=== PATIENT | female | born 1970 | race Caucasian/White ===

== ENCOUNTER 2017-08-26 15:56 | Outpatient (CLI) | payer BC, OTHER ==
--- NOTE | 2017-08-27 13:51 | Mammography Report ---
DIGITAL SCREENING MAMMOGRAM: 08/26/2017 INDICATION: A 47-year-old for screening. COMPARISON: This is the patient's baseline examination. TECHNIQUE: Routine CC and MLO projections were obtained of the breasts. FINDINGS: The breasts demonstrate scattered fibroglandular densities bilaterally. No suspicious masses, clustered microcalcifications, or regions of architectural distortion are identified. IMPRESSION: NEGATIVE EXAMINATION. RECOMMENDATION: Routine annual screening unless otherwise clinically indicated. BIRADS CATEGORY 1-NEGATIVE. STANDARD QUALIFYING STATEMENTS: 1. This examination was reviewed with the aid of Computer-Aided Detection (CAD). 2. A negative or benign imaging report should not delay biopsy if clinically suspicious findings are present. Consider surgical consultation if warranted. More than 5% of cancers are not identified by imaging. 3. Dense breasts may obscure an underlying neoplasm. TD: 08/27/2017 13:50
== END 2017-08-26 15:57 | disposition home or self-care (01) ==
LOC: DI 15:56
PROVIDERS: ATTEND Obstetrics & Gynecology
DX: Z12.31 Encounter for screening mammogram for malignant neoplasm of breast (principal)
CPT/HCPCS: 77067

== ENCOUNTER 2019-09-07 11:19 | Outpatient (CLI) | payer BC ==
--- NOTE | 2019-09-07 20:03 | XRAY Report ---
Reason: PAIN IN RIGHT KNEE Procedure Date: 09/07/2019 Accession Number: [id number] / [id number] Procedure: XR - Knee 3 View RT CPT Code: Final Report FULL RESULT: EXAM: RIGHT KNEE RADIOGRAPHY EXAM DATE: 09/07/2019 11:43 AM. CLINICAL HISTORY: PAIN IN RIGHT KNEE. Was 17 injury 3 weeks ago. Medial joint pain. COMPARISON: None. TECHNIQUE: 3 views. FINDINGS: Bones: Normal. No fractures or bone lesions. Joints: Normal. No effusion. No subluxations. Soft Tissues: Normal. No soft tissue swelling. IMPRESSION: Normal right knee radiography. [facility]
== END 2019-09-07 11:20 | disposition home or self-care (01) ==
LOC: DI 11:19
PROVIDERS: ATTEND Family Medicine
DX: M25.561 Pain in right knee (principal)

== ENCOUNTER 2019-10-04 14:54 | Outpatient (CLI) | payer BC ==
--- NOTE | 2019-10-04 16:04 | MRI Report ---
Reason: PAIN IN RIGHT KNEE Procedure Date: 10/04/2019 Accession Number: [id number] / [id number] Procedure: MRI - Knee RT W/O CPT Code: Final Report FULL RESULT: PROCEDURE: Knee RT W/O INDICATIONS: PAIN IN RIGHT KNEE TECHNIQUE: Noncontrast sagittal PD fast spin echo and T2 fast spin echo with fat saturation, sagittal 3-D gradient sequence with fat saturation; coronal T1 spin echo and PD fast spin echo with fat saturation, and axial PD fast spin echo with fat saturation through the knee. COMPARISON: Plain films of the knee dated 09.07.19 FINDINGS: Image quality: Excellent. Menisci: Mild amorphous high signal intensity within the medial meniscal body is present, without articular surface extension, compatible with myxoid degeneration. The medial and lateral menisci demonstrate otherwise normal morphology and internal signal. The meniscal root ligaments appear intact. Cruciate ligaments: The anterior and posterior cruciate ligaments appear intact. Medial structures: The medial collateral ligament appears intact. Visualized portions of the pes anserinus tendons appear normal. No abnormal bursal fluid. Lateral structures: The lateral collateral ligament, long and short heads of the biceps femoris tendon appear intact. The popliteus tendon appears. Iliotibial band appears normal. Anterior structures: The quadriceps and patellar tendons appear intact. Patellar alignment is normal. No femoral trochlear dysplasia or ventral trochlear prominence. No edema in the infrapatellar fat pad. Bones and cartilage: No bone marrow contusions or fractures. Mild diffuse articular cartilage loss overlies the weightbearing aspects of the medial femoral condyle and medial tibial plateau. Joint space: There is physiologic knee joint fluid. Trace Palma?s cyst. Normal appearing synovial plicae are incidentally noted. IMPRESSION: 1. 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 2. No internal derangement. 3. Mild medial compartment articular cartilage loss. Reviewed by: Virginia Baum MD on 10/04/2019 4:03 PM PDT Approved by: Virginia Baum MD on 10/04/2019 4:03 PM PDT Station ID: [id number]
== END 2019-10-04 14:55 | disposition home or self-care (01) ==
LOC: DI 14:54
PROVIDERS: ATTEND Family Medicine
DX: M23.8X1 Other internal derangements of right knee (principal)

== ENCOUNTER 2022-09-03 08:24 | Outpatient (CLI) | payer BC ==
[2022-09-03 11:49] LABS: BASOPHILS % (AUTO) 0.8 %; EOSINOPHILS # (AUTO) 0.1 10^3/uL (0.0-0.7); EOSINOPHILS % (AUTO) 2.6 %; HCT - HEMATOCRIT 41.8 % (37.0-47.0); HGB - HEMOGLOBIN 13.4 g/dL (12.0-16.0); LYMPHOCYTES # (AUTO) 1.2 10^3/uL (1.5-3.5); MEAN CORPUSCULAR HEMOGLOBIN 30.9 pg (27.0-31.0); MEAN CORPUSCULAR HGB CONC 32.1 g/dL (32.0-36.0); MEAN CORPUSCULAR VOLUME 96.5 fL (81.0-99.0); MEAN PLATELET VOLUME 10.5 fL (7.9-10.8); MONOCYTES # (AUTO) 0.4 10^3/uL (0.0-1.0); MONOCYTES % (AUTO) 10.3 %; NEUTROPHILS # (AUTO) 2.1 10^3/uL (1.5-6.6); NEUTROPHILS % (AUTO) 54.3 %; PLT - PLATELET COUNT 256 10^3/uL (130-450); RED BLOOD COUNT 4.33 10^6/uL (4.20-5.40); RED CELL DISTRIBUTION WIDTH 13.2 % (12.0-15.0); WHITE BLOOD COUNT 3.8 x10^3/uL (4.8-10.8)
[2022-09-03 12:25] LABS: ESTIMATED AVERAGE GLUCOSE 103 mg/dL (70-100); HEMOGLOBIN A1c% 5.2 % (4.27-6.07)
[2022-09-03 14:17] LABS: ALBUMIN 4.6 g/dL (3.2-5.5); ALBUMIN/GLOBULIN RATIO 1.4 (1.0-2.2); ALKALINE PHOSPHATASE 52 IU/L (42-121); ALT ALANINE AMINOTRANSFERASE 13 IU/L (10-60); AST ASPARTATE AMINOTRANSFERASE 15 IU/L (10-42); BILIRUBIN,TOTAL 0.7 mg/dL (0.2-1.0); BUN - BLOOD UREA NITROGEN 15 mg/dL (6-20); CALCIUM 9.4 mg/dL (8.5-10.3); CARBON DIOXIDE - CO2 25 mmol/L (21-32); CHLORIDE 107 mmol/L (101-111); CHOL/HDL RATIO 3.8 (<4.4); CHOLESTEROL 219 mg/dL; CREATININE 0.7 mg/dL (0.4-1.0); GFR - MDRD 88 (>89); GLUCOSE 92 mg/dL (70-100); HDL CHOLESTEROL 58 mg/dL; LDL CHOLESTEROL,CALCULATED 148 mg/dL; LDL/HDL RATIO 2.6 (<4.4); POTASSIUM 4.2 mmol/L (3.5-5.0); SODIUM 136 mmol/L (135-145); TOTAL PROTEIN 7.8 g/dL (6.7-8.2); TRIGLYCERIDES 63 mg/dL; VLDL CHOLESTEROL 13 mg/dL
== END 2022-09-03 08:25 | disposition home or self-care (01) ==
LOC: LAB.N 08:24
PROVIDERS: ATTEND Nurse Practitioner Family
DX: I10 Essential (primary) hypertension (principal); E66.9 Obesity, unspecified; Z13.220 Encounter for screening for lipoid disorders; Z13.1 Encounter for screening for diabetes mellitus
CPT/HCPCS: 36415; 80053; 80061; 83036; 83721; 84443; 85025

== ENCOUNTER 2023-06-14 06:02 | Emergency (ER) | payer BC ==
[2023-06-14] MEDS: SODIUM CHLORIDE 0.9% 1,000 ML IV STA ×2 (06:56→07:42)
[2023-06-14] MEDS: ONDANSETRON 4 MG/2 ML VIAL IVP STA (06:56)
--- NOTE | 2023-06-14 07:06 | ED Physician Documentation ---
PD HPI NVD - Stated complaint Stated Complaint: NAUSEA - Chief complaint Chief Complaint: Abd Pain - History obtained from History obtained from: Patient - History of Present Illness Timing - onset: How many days ago (3) Timing - duration: Days (3 with frequent vomiting every 2-3 hours.) Timing - details: Abrupt onset, Still present Contributing factors: Other (she had skipped a month of [place] and had given monthly injection day beofre onset of symptoms. So unclear if connected or coincidence.). No: Sick contact, Bad food Similar symptoms before: Has not had sx before (she has been on [place] monthly for half a year without side effects like this. But skipped a month so not sure if that had an effect.) Recently seen: Not recently seen Review of Systems Constitutional: denies: Fever, Chills Nose: denies: Rhinorrhea / runny nose, Congestion Throat: denies: Sore throat Respiratory: denies: Cough GI: reports: Abdominal Pain (intermittent cramping), Nausea, Vomiting, Diarrhea. denies: Constipation, Hematemesis, Bloody / black stool Neurologic: reports: Generalized weakness. denies: Syncope PD PAST MEDICAL HISTORY - Past Medical History Cardiovascular: Hypertension Psych: Anxiety - Present Medications Home Medications: Ambulatory Orders Medication Instructions Recorded Confirmed Famotidine [Pepcid] 20 mg PO DAILY #20 tablet 06/14/23 Ondansetron Odt [Zofran] 4 mg TL Q6H PRN #10 tablet 06/14/23 Semaglutide [Wegovy] 0.25 mg SQ ONCE 06/14/23 06/14/23 buPROPion HCL [Wellbutrin Xl] 300 mg PO DAILY 06/14/23 06/14/23 lisinopriL [Lisinopril] 40 mg PO DAILY 06/14/23 06/14/23 - Allergies Allergies/Adverse Reactions: Allergies Allergy/AdvReac Type Severity Reaction Status Date / Time Penicillins Allergy Unknown Verified 06/14/23 06:15 - Social History Does the pt smoke?: No Smoking Status: Never smoker PD ED PE NORMAL - Vitals Vital signs reviewed: Yes - General General: Alert and oriented X 3, Well developed/nourished, Other (holding emesis bag) - HEENT HEENT: Pharynx benign. No: Moist mucous membranes - Neck Neck: Supple, no meningeal sign, No adenopathy - Cardiac Cardiac: RRR, No murmur - Respiratory Respiratory: Clear bilaterally - Derm Derm: Normal color, Warm and dry - Extremities Extremities: No calf tenderness / cord - Neuro Neuro: Alert and oriented X 3, No motor deficit, Normal speech Results - Vitals Vitals: Oxygen O2 Source Room air - Labs Labs: Laboratory Tests 06/14/23 06/14/23 06/14/23 06:50 06:50 06:50 WBC 9.4 RBC 4.76 Hgb 15.2 Hct 46.7 MCV 98.1 MCH 31.9 H MCHC 32.5 RDW 12.9 Plt Count 286 MPV 10.1 Neut # (Auto) 8.2 H Lymph # (Auto) 0.6 L [place] # (Auto) 0.5 Eos # (Auto) 0.0 Baso # (Auto) 0.0 Absolute Nucleated RBC 0.00 Nucleated RBC % 0.0 Sodium 136 Potassium 4.1 Chloride 102 Carbon Dioxide 18 L Anion Gap 16.0 H BUN 25 H Creatinine 0.9 Estimated GFR (MDRD) 65 L Glucose 76 Calcium 10.1 Magnesium 1.9 Total Bilirubin 0.8 AST 13 ALT 9 L Alkaline Phosphatase 57 Total Protein 8.1 Albumin 5.0 Globulin 3.1 Albumin/Globulin Ratio 1.6 Lipase < 10 L PD Medical Decision Making - ED course Complexity details: reviewed results, re-evaluated patient (feeling improved with IV fluids and meds IV of Zofran, Toradol and Famotidine. ), considered differential (abrupt N/V/D soon after injection of [place] medication but has had it monthly for awhile without side effects. Had been at higher dose before and was at maintanence dose and skipped one month. No obvious food source for GE . Not having general viral symptoms. Exam not c/w obstruction/etc.), d/w patient Departure - Departure Disposition: 01 Home, Self Care Clinical Impression: Volume depletion, Nausea and vomiting, Acute gastroenteritis Condition: Stable Record reviewed to determine appropriate education?: Yes Instructions: ED Nausea Vomiting Prescriptions: Famotidine [Pepcid] 20 mg PO DAILY #20 tablet Ondansetron Odt [Zofran] 4 mg TL Q6H PRN #10 tablet PRN Reason: Nausea / Vomiting Comments: This combination of symptoms may be related to a viral "stomach flu". There have been focal with similar illnesses lasting 3 to 5 days being seen recently here in the ER. There may be a compounded effect of the side effects from the [place]gov[place] as well. At this point hopefully the ondansetron/Zofran will allow for decreased nausea. Be gentle with your stomach of course with frequent fluids and ice chips and commonly carbohydrates or starches are more easily absorbed initially, such as rice breads pastas and cereals. Simple proteins like protein shakes can be good as well. Progress diet and intake as tolerated. You were given a couple liters of fluid here so you should be hydrated for now and the hydration is the mosley with calorie intake being less important but still you want to improve on that. Your basic blood test showed normal liver function and no signs of inflammation of the liver or pancreas. Your electrolytes were in the right range. Blood sugar is okay. Blood count is normal as well. No obvious other processes going on. You do not have tenderness in any local area or at all so unlikely to be problems such as gallbladder or appendix or diverticula etc. I sent prescription for some ondansetron to preferred pharmacy. Also famotidine acid reducing medicine. I would suggest that twice daily for the first 5 days or so and then once daily for another week or 2 as your stomach would have gotten fairly irritated with the vomiting. Recheck if not resolved well over the next few days. I would contact your primary care/prescriber regarding next dose on the [place]yg[place], whether to go with full dose or slightly decreased or such but hopefully the current symptoms relate more to a viral type illness. Forms: PCP List Discharge Date/Time: 06/14/23 08:37
[2023-06-14 07:09] LABS: BASOPHILS % (AUTO) 0.2 %; EOSINOPHILS % (AUTO) 0.4 %; HCT - HEMATOCRIT 46.7 % (37.0-47.0); HGB - HEMOGLOBIN 15.2 g/dL (12.0-16.0); LYMPHOCYTES # (AUTO) 0.6 10^3/uL (1.5-3.5); LYMPHOCYTES % (AUTO) 6.1 %; MEAN CORPUSCULAR HEMOGLOBIN 31.9 pg (27.0-31.0); MEAN CORPUSCULAR HGB CONC 32.5 g/dL (32.0-36.0); MEAN CORPUSCULAR VOLUME 98.1 fL (81.0-99.0); MEAN PLATELET VOLUME 10.1 fL (7.9-10.8); MONOCYTES # (AUTO) 0.5 10^3/uL (0.0-1.0); MONOCYTES % (AUTO) 5.8 %; NEUTROPHILS # (AUTO) 8.2 10^3/uL (1.5-6.6); NEUTROPHILS % (AUTO) 87.1 %; PLT - PLATELET COUNT 286 10^3/uL (130-450); RED BLOOD COUNT 4.76 10^6/uL (4.20-5.40); RED CELL DISTRIBUTION WIDTH 12.9 % (12.0-15.0); WHITE BLOOD COUNT 9.4 x10^3/uL (4.8-10.8)
[2023-06-14] MEDS: FAMOTIDINE 20 MG/2 ML VIAL IVP STA (07:33)
[2023-06-14 07:37] LABS: ALBUMIN/GLOBULIN RATIO 1.6 (1.0-2.2); ALKALINE PHOSPHATASE 57 IU/L (42-121); ALT ALANINE AMINOTRANSFERASE 9 IU/L (10-60); AST ASPARTATE AMINOTRANSFERASE 13 IU/L (10-42); BILIRUBIN,TOTAL 0.8 mg/dL (0.2-1.0); BUN - BLOOD UREA NITROGEN 25 mg/dL (6-20); CALCIUM 10.1 mg/dL (8.5-10.3); CARBON DIOXIDE - CO2 18 mmol/L (21-32); CHLORIDE 102 mmol/L (101-111); CREATININE 0.9 mg/dL (0.6-1.3); GFR - MDRD 65 (>89); GLUCOSE 76 mg/dL (74-104); LIPASE < 10 U/L (11-82); POTASSIUM 4.1 mmol/L (3.5-4.5); SODIUM 136 mmol/L (135-145); TOTAL PROTEIN 8.1 g/dL (6.4-8.9)
[2023-06-14 08:44] VITALS: BP 141/87; O2SAT 98
== END 2023-06-14 08:37 | disposition home or self-care (01) ==
LOC: ED 06:02
DX: K52.9 Noninfective gastroenteritis and colitis, unspecified (principal); E86.9 Volume depletion, unspecified; I10 Essential (primary) hypertension; Z79.899 Other long term (current) drug therapy
CPT/HCPCS: 36415; 80053; 83690; 83735; 85025; 96374; 96375; 99284

== ENCOUNTER 2023-12-13 09:18 | Outpatient (CLI) | payer BC ==
[2023-12-13 12:40] LABS: BASOPHILS % (AUTO) 0.6 %; EOSINOPHILS # (AUTO) 0.1 10^3/uL (0.0-0.7); HCT - HEMATOCRIT 40.6 % (37.0-47.0); LYMPHOCYTES # (AUTO) 1.3 10^3/uL (1.5-3.5); LYMPHOCYTES % (AUTO) 26.8 %; MEAN CORPUSCULAR HEMOGLOBIN 31.4 pg (27.0-31.0); MEAN CORPUSCULAR VOLUME 98.1 fL (81.0-99.0); MEAN PLATELET VOLUME 10.9 fL (7.9-10.8); MONOCYTES # (AUTO) 0.4 10^3/uL (0.0-1.0); MONOCYTES % (AUTO) 7.5 %; NEUTROPHILS # (AUTO) 3.1 10^3/uL (1.5-6.6); NEUTROPHILS % (AUTO) 62.9 %; PLT - PLATELET COUNT 263 10^3/uL (130-450); RED BLOOD COUNT 4.14 10^6/uL (4.20-5.40); RED CELL DISTRIBUTION WIDTH 12.6 % (12.0-15.0); WHITE BLOOD COUNT 4.9 x10^3/uL (4.8-10.8)
[2023-12-13 13:06] LABS: ALBUMIN 4.1 g/dL (3.2-5.5); ALBUMIN/GLOBULIN RATIO 1.5 (1.0-2.2); ALKALINE PHOSPHATASE 48 IU/L (42-121); ALT ALANINE AMINOTRANSFERASE 6 IU/L (10-60); AST ASPARTATE AMINOTRANSFERASE 12 IU/L (10-42); BILIRUBIN,TOTAL 0.5 mg/dL (0.2-1.0); BUN - BLOOD UREA NITROGEN 11 mg/dL (6-20); CALCIUM 9.5 mg/dL (8.5-10.3); CARBON DIOXIDE - CO2 26 mmol/L (21-32); CHLORIDE 104 mmol/L (101-111); CHOL/HDL RATIO 3.6 (<4.4); CHOLESTEROL 185 mg/dL; CREATININE 0.8 mg/dL (0.6-1.3); GFR - MDRD 75 (>89); GLUCOSE 83 mg/dL (74-104); HDL CHOLESTEROL 51 mg/dL; LDL CHOLESTEROL,CALCULATED 119 mg/dL; LDL/HDL RATIO 2.3 (<4.4); POTASSIUM 4.2 mmol/L (3.5-4.5); SODIUM 135 mmol/L (135-145); TOTAL PROTEIN 6.8 g/dL (6.4-8.9); TRIGLYCERIDES 73 mg/dL; VLDL CHOLESTEROL 15 mg/dL
[2023-12-13 13:10] LABS: THYROID STIMULATING HORMONE 1.19 uIU/mL (0.34-5.60)
[2023-12-13 13:22] LABS: ESTIMATED AVERAGE GLUCOSE 91 mg/dL (70-100); HEMOGLOBIN A1c% 4.8 % (4.27-6.07)
== END 2023-12-13 09:19 | disposition home or self-care (01) ==
LOC: LAB.N 09:18
PROVIDERS: ATTEND Nurse Practitioner Family
DX: Z00.00 Encounter for general adult medical examination without abnormal findings (principal)
CPT/HCPCS: 36415; 80053; 80061; 83036; 83721; 84443; 85025

== ENCOUNTER 2023-12-16 06:19 | Day surgery (SDC) | payer BC ==
[2023-12-16] MEDS: LACTATED RINGERS 1,000 ML IV ONE ×2 (06:21→08:27)
[2023-12-16 06:34] VITALS: O2SAT 100
[2023-12-16] MEDS ORDERED: LIDOCAINE-MPF 2% 5 ML VIAL ONE (06:59)
[2023-12-16] MEDS ORDERED: PROPOFOL 500 MG/50 ML 500 MG/50 ML VIAL ONE (06:59)
--- NOTE | 2023-12-16 07:09 | ANESTHESIA ---
Pre-Anesthesia VS, & Labs - Diagnosis screening - Procedure colonoscopy Vital Signs: Temp Pulse Resp BP Pulse Ox O2 Flow Rate 36.3 C L 86 15 117/93 H 100 12/16/23 06:21 12/16/23 06:21 12/16/23 06:21 12/16/23 06:21 12/16/23 06:21 Height: 5 ft 6 in Weight (kg): 151.6 kg Body Mass Index: 53.9 BMI Classification: Morbidly Obese - NPO >8 hours - Is Patient ?: Waiver signed - Lab Results Lab results reviewed: Yes Home Medications and Allergies Semaglutide [Wegovy] 0.25 mg SQ ONCE 06/14/23 buPROPion HCL [Wellbutrin Xl] 300 mg PO DAILY 06/14/23 lisinopriL [Lisinopril] 40 mg PO DAILY 06/14/23 Allergies/Adverse Reactions: Allergies Allergy/AdvReac Type Severity Reaction Status Date / Time Penicillins Allergy Unknown Verified 06/14/23 06:15 Anes History & Medical History - Anesthetic History Anesthesia Complications: reports: No previous complications Family history of Anesthesia Complications: Denies Family history of Malignant Hyperthermia: Denies - Medical History Cardiovascular: reports: Hypertension Pulmonary: reports: None Gastrointestinal: reports: None Urinary: reports: None Musculoskeletal: reports: None Endocrine/Autoimmune: reports: None Skin: reports: None Smoking Status: Never smoker History of Cancer?: No - Surgical History General: reports: Colonoscopy, EGD Exam General: Alert, Oriented x3, Cooperative Dental: WNL Mouth Openin Fingerbreadth Neck Mobility: Normal Mallampati classification: II Thyromental Distance: 4-6 cm Respiratory: Lungs clear, Normal breath sounds, No respiratory distress Cardiovascular: Regular rate Neurological: Normal speech Mental/Cognitive Status: Alert/Oriented X3, Normal for patient Plan Anesthesia Type: Total IV Consent for Procedure(s) Verified and Reviewed: Yes Code Status: Attempt Resuscitation ASA classification: 2-Mild systemic disease Is this case an emergency?: No
[2023-12-16] MEDS ORDERED: MIDAZOLAM 2 MG/2 ML VIAL ONE (07:12)
--- NOTE | 2023-12-16 07:30 | HISTORY & PHYSICAL EXAMINATION ---
Chief Complaint - Chief Complaint Chief Complaint: here for colonoscopy History of Present Illness - History Obtained From Records Reviewed: yes History obtained from: pt Exam Limitations: none - History of Present Illness HPI Comment/Other: here for colonoscopy for screening. no fhx colon ca, no symptoms, no anemia. History - Past Medical History Cardiovascular: reports: Hypertension Respiratory: reports: None Endocrine/Autoimmune: reports: None GI: reports: None : reports: None HEENT: reports: Chronic vision loss Psych: reports: Anxiety Musculoskeletal: reports: None Derm: reports: None MRSA Hx?: No - Past Surgical History General: reports: Colonoscopy, EGD Meds/Allgy - Home Medications Home Medications: Ambulatory Orders Medication Instructions Recorded Confirmed Semaglutide [Wegovy] 0.25 mg SQ ONCE 06/14/23 12/15/23 buPROPion HCL [Wellbutrin Xl] 300 mg PO DAILY 06/14/23 12/15/23 lisinopriL [Lisinopril] 40 mg PO DAILY 06/14/23 12/15/23 - Allergies Allergies/Adverse Reactions: Allergies Allergy/AdvReac Type Severity Reaction Status Date / Time Penicillins Allergy Unknown Verified 06/14/23 06:15 Review of Systems - Other Findings Other Findings: 10 pt ros as above otherwise unremarkable Exam - Vital Signs Vital Signs: Vital Signs x48h Temp Pulse Resp BP Pulse Ox 12/16/23 06:21 36.3 C L 86 15 117/93 H 100 - Physical Exam General Appearance: positive: No acute distress, Alert Eyes Bilateral: positive: PERRL, EOMI ENT: positive: No signs of dehydration Neck: positive: No JVD Respiratory: positive: No respiratory distress Cardiovascular: positive: Regular rate & rhythm Abdomen: positive: No distention Neurologic/Psychiatric: positive: Oriented x3 Conclusion/Plan - Problem List (1) Colon cancer screening Conclusion/Plan: plan colonoscopy. parq held and consent obtained - Lab Results Lab results reviewed: Yes
[2023-12-16] MEDS ORDERED: PROPOFOL 200 MG/20 ML VIAL IVP ONE (08:21)
[2023-12-16 09:05] VITALS: BP 110/93
--- NOTE | 2023-12-16 09:56 | ANESTHESIA POST OP EVALUATION ---
Anesthesia Post Eval - Post Anesthesia Eval Vitals: Last Vital Signs Temp 36.6 C 12/16/23 08:27 Pulse 85 12/16/23 08:59 Resp 17 12/16/23 08:59 BP 110/93 H 12/16/23 08:59 Pulse Ox 100 12/16/23 08:59 O2 Flow Rate CV Function Including HR & BP: Stable Pain Control: Satisfactory Nausea & Vomiting: Negative Mental Status: Baseline Respiratory Status: Airway Patent Hydration Status: Satisfactory Anesthesia Complications: None
== END 2023-12-16 06:20 | disposition home or self-care (01) ==
LOC: SDS 06:19
PROVIDERS: ATTEND Surgery
DX: Z12.11 Encounter for screening for malignant neoplasm of colon (principal); E66.01 Morbid (severe) obesity due to excess calories; Z68.43 Body mass index [BMI] 50.0-59.9, adult
CPT/HCPCS: 45378; J7120

== ENCOUNTER 2024-01-05 18:07 | Outpatient (CLI) | payer BC, OTHER ==
--- NOTE | 2024-01-06 08:18 | XRAY Report ---
PROCEDURE: Wrist 1-2V LT INDICATIONS: CONTUSION OF LEFT WRIST TECHNIQUE: AP and lateral view of the left wrist COMPARISON: None. FINDINGS: Please note that a scaphoid view was not obtained. Within these limitations, no acute fracture or dis location. The joint spaces are preserved. IMPRESSION: No acute fracture or dislocation of the left wrist. 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 Reviewed by: Az Esquivel MD on 01/06/2024 8:17 AM PDT Approved by: Az Esquivel MD on 01/06/2024 8:17 AM PDT Station ID: [id number]
--- NOTE | 2024-01-06 08:37 | XRAY Report ---
PROCEDURE: Knee 2V LT INDICATIONS: CONTUSION OF LT KNEE TECHNIQUE: AP and lateral view of the left knee COMPARISON: None. FINDINGS: No acute fracture or dislocation. The joint spaces are preserved. No significant joint effusion. IMPRESSION: No acute fracture or dislocation of the left knee. Reviewed by: Az Esquivel MD on 01/06/2024 8:35 AM PDT Approved by: Az Esquivel MD on 01/06/2024 8:35 AM PDT Station ID: [id number]
--- NOTE | 2024-01-06 17:15 | XRAY Report ---
Hand 1-2V LT HISTORY: 53 years of age, CONTUSION OF LT WRIST TECHNIQUE: Hand 1-2V LT COMPARISON: None. FINDINGS/IMPRESSION: No acute fracture or dislocation. Joint spaces are well maintained. Reviewed by: Yvonne Andrews MD on 01/06/2024 5:14 PM PDT Approved by: Yvonne Andrews MD on 01/06/2024 5:14 PM PDT Station ID: [id number]
== END 2024-01-05 18:08 | disposition home or self-care (01) ==
LOC: DI 18:07
PROVIDERS: ATTEND Nurse Practitioner
DX: S60.212A Contusion of left wrist, initial encounter (principal); S80.02XA Contusion of left knee, initial encounter